=== PATIENT | male | born 1980 | race Caucasian/White ===

== ENCOUNTER 2017-11-26 07:25 | Emergency (ER) | payer MEDICAID, OTHER ==
[2017-11-26] MEDS ORDERED: Sodium Chloride 0.9% 500 ML IV ONE (07:45)
[2017-11-26] MEDS ORDERED: Sodium Chloride 0.9% 10 ML Syringe FLUSH PRN (07:45)
[2017-11-26] MEDS ORDERED: Ondansetron 4 MG/2 ML SDV IVPUSH ONE (07:58)
--- NOTE | 2017-11-26 07:58 | EDM.PDOC ---
ED HPI GENERAL MEDICAL PROBLEM - General Chief Complaint: Syncope Stated Complaint: [facility] Time Seen by Provider: 11/26/17 07:36 Source of Information: Reports: Patient, RN Notes Reviewed - History of Present Illness INITIAL COMMENTS - FREE TEXT/NARRATIVE: 37-year-old male has been brought in by ambulance after suffering syncopal event this morning a short time ago. He had been up For about a half an hour. He states he was sitting in a chair drinking coffee when he began to feel lightheaded dizzy nauseated. He did Not say anything to his . He thought it would pass. Than he proceeded to pass out at least for a brief period of time. On ambulance arrival he was awake.He was transported here without further incident. He has not been ill recently but has been taking fairly high dose alprazolam 1 mg 2-3 times dailyfor the past several weeks, probably longer. He has tapered down having taken a half milligram yesterday morning, nothing since that time. Apparently he is starting a new job Tuesday, 2 days from now and wants to be off of that medication. Is having no chest pain this morning. He feels slightly nauseated at this time. He has not vomited. No difficulty breathing. No palpitations. - Related Data Allergies Allergy/AdvReac Type Severity Reaction Status Date / Time No Known Allergies Allergy Verified 11/26/17 07:27 Home Meds: Home Meds ALPRAZolam [Xanax] 1 mg PO DAILY 11/26/17 [History] Past Medical History - Past Health History Medical/Surgical History: Denies Medical/Surgical History Social & Family History - Tobacco Use Smoking Status *Q: Never Smoker - Caffeine Use Caffeine Use: Reports: Coffee - Recreational Drug Use Recreational Drug Use: Yes Drug Use in Last 12 Months: Yes Recreational Drug Type: Reports: Xanax ED ROS GENERAL - Review of Systems Review Of Systems: See Below Constitutional: Reports: Diaphoresis (one). Denies: Fever, Chills HEENT: Denies: Throat Pain Respiratory: Denies: Shortness of Breath Cardiovascular: Reports: Lightheadedness, Syncope. Denies: Chest Pain, Palpitations (one) GI/Abdominal: Reports: Nausea. Denies: Abdominal Pain, Vomiting Musculoskeletal: Denies: Shoulder Pain, Arm Pain, Back Pain Skin: Denies: Rash Neurological: Denies: Headache, Numbness, Tingling, Trouble Speaking, Difficulty Walking - Physical Exam Exam: See Below General Appearance: Alert, No Apparent Distress Eye Exam: Bilateral Eye: PERRL Throat/Mouth: Normal Inspection, Normal Oropharynx Head Exam: Atraumatic Neck: Supple, Full Range of Motion Respiratory/Chest: No Respiratory Distress, Lungs Clear, Normal Breath Sounds Cardiovascular: Regular Rate, Rhythm GI/Abdominal: Soft, Non-Tender Neuro Exam (Abbreviated): Alert, Oriented, No Motor/Sensory Deficits, Other ( finger to nose testing normal) Extremities: Normal Inspection, Normal Range of Motion Skin Exam: Warm, Dry, Normal Color Course - Vital Signs Last Recorded V/S: Last Vital Signs Temp 97.3 F 11/26/17 07:28 Pulse 99 11/26/17 07:28 Resp 18 11/26/17 07:28 BP 132/74 11/26/17 07:28 Pulse Ox 100 11/26/17 07:28 Orthostatic Blood Pressure [ 130/74 Standing] Orthostatic Blood Pressure [ 135/85 Sitting] Orthostatic Blood Pressure [ 132/74 Supine] - Orders/Labs/Meds Orders: Active Orders 24 hr Category Date Time Status Orthostatic Vital Signs [RC] ASDIRECTED Care 11/26/17 07:40 Active Peripheral IV Care [RC] . DIRECTED Care 11/26/17 07:45 Active Sodium Chloride 0.9% [Saline Flush] Med 11/26/17 07:45 Active 10 ml FLUSH ASDIRECTED PRN Peripheral IV Insertion Adult [OM.PC] Stat Oth 11/26/17 07:45 Ordered Medication Orders Sodium Chloride (Saline Flush) 10 ml FLUSH ASDIRECTED PRN PRN Reason: Keep Vein Open Last Admin: 11/26/17 07:57 Dose: 10 ml Labs: Laboratory Tests 11/26/17 11/26/17 Range/Units 07:35 07:35 WBC 5.48 (4.23-9.07) K/mm3 RBC 5.36 (4.63-6.08) M/mm3 Hgb 17.1 (13.7-17.5) gm/L Hct 48.4 (40.1-51.0) % MCV 90.3 (79.0-92.2) fl MCH 31.9 (25.7-32.2) pg MCHC 35.3 (32.2-35.5) g/dl RDW Std Deviation 39.8 (35.1-43.9) fL Plt Count 195 (163-337) K/mm3 MPV 9.4 (9.4-12.3) fl Neut % (Auto) 36.4 (34.0-67.9) % Lymph % (Auto) 54.2 H (21.8-53.1) % [place] % (Auto) 7.1 (5.3-12.2) % Eos % (Auto) 1.5 (0.8-7.0) Baso % (Auto) 0.4 (0.1-1.2) % Neut # (Auto) 2.00 (1.78-5.38) K/mm3 Lymph # (Auto) 2.97 (1.32-3.57) K/mm3 [place] # (Auto) 0.39 (0.30-0.82) K/mm3 Eos # (Auto) 0.08 (0.04-0.54) K/mm3 Baso # (Auto) 0.02 (0.01-0.08) K/mm3 Sodium 137 (136-145) mEq/L Potassium 3.6 (3.5-5.1) mEq/L Chloride 101 (98-107) mEq/L Carbon Dioxide 27 (21-32) mEq/L Anion Gap 12.6 (5-15) BUN 16 (7-18) mg/dL Creatinine 1.2 (0.7-1.3) mg/dL Est Cr Clr Drug Dosing 85.92 mL/min Estimated GFR (MDRD) > 60 (>60) mL/min BUN/Creatinine Ratio 13.3 L (14-18) Glucose 120 H (74-106) mg/dL Calcium 9.0 (8.5-10.1) mg/dL Total Bilirubin 0.5 (0.2-1.0) mg/dL AST 22 (15-37) U/L ALT 43 (16-63) U/L Alkaline Phosphatase 89 (46-116) U/L Total Protein 7.6 (6.4-8.2) g/dl Albumin 4.2 (3.4-5.0) g/dl Globulin 3.4 gm/dL Albumin/Globulin Ratio 1.2 (1-2) Meds: Medications Generic Name Dose Route Start Last Admin Trade Name Xavier PRN Reason Stop Dose Admin Sodium Chloride 10 ml 11/26/17 07:45 11/26/17 07:57 Saline Flush FLUSH 10 ml ASDIRECTED PRN Administration Keep Vein Open Discontinued Medications Generic Name Dose Route Start Last Admin Trade Name Xavier PRN Reason Stop Dose Admin Sodium Chloride 500 mls @ 999 mls/hr 11/26/17 07:45 11/26/17 07:57 Normal Saline IV 11/26/17 08:15 999 mls/hr .BOLUS ONE Administration Ondansetron HCl 4 mg 11/26/17 07:58 11/26/17 08:07 Zofran IVPUSH 11/26/17 07:59 4 mg ONETIME ONE Administration - Re-Assessments/Exams Free Text/Narrative Re-Assessment/Exam: 11/26/17 07:58 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 11/26/17 08:54. labs are good, has continued in sinus rhythm no ectopy. Discharge instructions as documented Departure - Departure Time of Disposition: 08:54 Disposition: Home, Self-Care 01 Condition: Fair Clinical Impression: Syncope Qualifiers: Syncope type: vasovagal syncope Qualified Code(s): R55 - Syncope and collapse - Discharge Information Forms: ED Department Discharge Additional Instructions: rest, continue to drink plenty of water.Taper with the Xanax as discussed, 0.5 mg twice daily today, 0.5 mg tomorrow morning to 0.25 mg at evening only for the next several days. Follow-up clinic as needed. Return to ED as needed if symptoms worsening in any way. - My Orders Last 24 Hours: My Active Orders 11/26/17 07:40 Orthostatic Vital Signs [RC] ASDIRECTED 11/26/17 07:45 Peripheral IV Care [RC] . DIRECTED Sodium Chloride 0.9% [Saline Flush] 10 ml FLUSH ASDIRECTED PRN Peripheral IV Insertion Adult [OM.PC] Stat - Assessment/Plan Last 24 Hours: My Active Orders 11/26/17 07:40 Orthostatic Vital Signs [RC] ASDIRECTED 11/26/17 07:45 Peripheral IV Care [RC] . DIRECTED Sodium Chloride 0.9% [Saline Flush] 10 ml FLUSH ASDIRECTED PRN Peripheral IV Insertion Adult [OM.PC] Stat
== END 2017-11-26 09:03 | disposition home or self-care (01) ==
LOC: JD.ED 07:25
DX: R55 Syncope and collapse (principal)
CPT/HCPCS: 36415; 80053; 85025; 96361; 96374; 99284; J2405; J7040; J7050

== ENCOUNTER 2021-07-03 20:03 | Emergency (ER) | payer BC ==
[2021-07-03] MEDS ORDERED: Sodium Chloride 0.9% 10 ML Syringe FLUSH PRN (20:23)
--- NOTE | 2021-07-03 20:54 | EDM.PDOC ---
ED HPI GENERAL MEDICAL PROBLEM - General Chief Complaint: Cardiovascular Problem Stated Complaint: SYNCOPE/ HEAD INJURY Time Seen by Provider: 07/03/21 20:14 Source of Information: Reports: Patient, RN Notes Reviewed History Limitations: Reports: No Limitations - History of Present Illness INITIAL COMMENTS - FREE TEXT/NARRATIVE: Patient is a 40-year-old male presenting to the emergency department for evaluation of syncopal episodes x2 today. He reports that the first episode, he was sitting his truck and he developed pain in his chest and started hyperventilating. He then briefly lost consciousness. Prior to coming to ER, he was sitting in a chair leaning forward on his phone when he developed similar symptoms of hyperventilation and chest tightness. He then experienced syncopal episode. Patient reports he fell forward in the chair and landed on the top of his head on the concrete. Complains of headache slight blurred vision at this time. He reports that he is currently under quite a bit of stress. His left him and took his for children with. He has been feeling quite anxious, especially when he has these episodes. Denies any dizziness, chest pain, or shortness of breath at this time. Headache Pain Score (Numeric/FACES): 4 - Related Data Allergies Allergy/AdvReac Type Severity Reaction Status Date / Time No Known Allergies Allergy Verified 07/03/21 22:24 Home Meds: Home Meds ALPRAZolam [Xanax] 1 mg PO DAILY 11/26/17 [History] Gabapentin [Neurontin] 100 mg PO BID #14 cap 10/08/20 [Rx] Past Medical History - Past Health History Medical/Surgical History: Denies Medical/Surgical History Cardiovascular History: Reports: Other (See Below) Other Cardiovascular History: [facility] - Infectious Disease History Infectious Disease History: Reports: Novel Coronavirus Other Infectious Disease History: covid + in 06/2020 Social & Family History - Tobacco Use Tobacco Use Status *Q: Never Tobacco User - Caffeine Use Caffeine Use: Reports: Coffee - Recreational Drug Use Recreational Drug Use: Yes Drug Use in Last 12 Months: No Recreational Drug Type: Reports: Marijuana/Hashish Recreational Drug Use Frequency: Not Used In Over 6 Months Recreational Drug Last Use: 2016 ED ROS GENERAL - Review of Systems Review Of Systems: See Below Constitutional: Reports: No Symptoms. Denies: Fever, Chills HEENT: Reports: Vision Change (slightly blurred) Respiratory: Reports: No Symptoms Cardiovascular: Reports: Syncope Endocrine: Reports: No Symptoms GI/Abdominal: Reports: No Symptoms : Reports: No Symptoms Musculoskeletal: Reports: No Symptoms Skin: Reports: No Symptoms Neurological: Reports: Headache, Syncope Psychiatric: Reports: No Symptoms Hematologic/Lymphatic: Reports: No Symptoms Immunologic: Reports: No Symptoms ED EXAM, GENERAL - Physical Exam Exam: See Below General Appearance: Alert, WD/WN, No Apparent Distress Eye Exam: Bilateral Eye: PERRL Head: Other (Small hematoma to the top of the head. No bleeding or open areas.) Neck: Normal Inspection, Supple, Non-Tender, Full Range of Motion Respiratory/Chest: No Respiratory Distress, Lungs Clear, Normal Breath Sounds, No Accessory Muscle Use, Chest Non-Tender Cardiovascular: Normal Peripheral Pulses, Regular Rate, Rhythm, No Edema, No Gallop, No JVD, No Murmur, No Rub GI/Abdominal: Normal Bowel Sounds, Soft, Non-Tender, No Organomegaly, No Distention, No Abnormal Bruit, No Mass Neurological: Alert, Oriented, CN II-XII Intact, Normal Cognition, Normal Gait, No Motor/Sensory Deficits Psychiatric: Normal Affect, Normal Mood Skin Exam: Warm, Dry, Intact, Normal Color, No Rash #1 Interpretation EKG Date: 07/03/21 Time: 20:26 Rhythm: NSR Rate (Beats/Min): 97 [place]: Normal P-Wave: Present QRS: Normal ST-T: Normal QT: Normal Comparison: NA - No Prior EKG Course - Vital Signs Last Recorded V/S: Last Vital Signs Temp 98.5 F 07/03/21 20:15 Pulse 101 H 07/03/21 20:15 Resp 18 07/03/21 20:15 BP 123/76 07/03/21 20:15 Pulse Ox 98 07/03/21 20:15 - Orders/Labs/Meds Orders: Active Orders 24 hr Category Date Time Status Chest 2V [CR] Stat Exams 07/03/21 20:42 Taken Head wo Cont [CT] Stat Exams 07/03/21 20:42 Taken Peripheral IV Insertion Adult [OM.PC] Stat Oth 07/03/21 20:23 Ordered Labs: Laboratory Tests 07/03/21 07/03/21 07/03/21 Range/Units 20:30 20:30 20:30 WBC 8.45 (4.23-9.07) K/mm3 RBC 4.81 (4.63-6.08) M/mm3 Hgb 15.4 (13.7-17.5) gm/dl Hct 44.1 (40.1-51.0) % MCV 91.7 (79.0-92.2) fl MCH 32.0 (25.7-32.2) pg MCHC 34.9 (32.2-35.5) g/dl RDW Std Deviation 38.4 (35.1-43.9) fL Plt Count 232 (163-337) K/mm3 MPV 9.5 (9.4-12.3) fl Neut % (Auto) 83.2 H (34.0-67.9) % Lymph % (Auto) 10.1 L (21.8-53.1) % [place] % (Auto) 6.4 (5.3-12.2) % Eos % (Auto) 0.1 L (0.8-7.0) Baso % (Auto) 0.1 (0.1-1.2) % Neut # (Auto) 7.03 H (1.78-5.38) K/mm3 Lymph # (Auto) 0.85 L (1.32-3.57) K/mm3 [place] # (Auto) 0.54 (0.30-0.82) K/mm3 Eos # (Auto) 0.01 L (0.04-0.54) K/mm3 Baso # (Auto) 0.01 (0.01-0.08) K/mm3 D-Dimer, Quantitative 0.28 (0.19-0.50) mg/L Sodium 139 (136-145) mEq/L Potassium 3.6 (3.5-5.1) mEq/L Chloride 103 (98-107) mEq/L Carbon Dioxide 25 (21-32) mEq/L Anion Gap 14.6 (5-15) BUN 12 (7-18) mg/dL Creatinine 0.9 (0.7-1.3) mg/dL Est Cr Clr Drug Dosing 111.29 mL/min Estimated GFR (MDRD) > 60 (>60) mL/min BUN/Creatinine Ratio 13.3 L (14-18) Glucose 105 H (70-99) mg/dL Calcium 8.5 (8.5-10.1) mg/dL Total Bilirubin 0.6 (0.2-1.0) mg/dL AST 47 H (15-37) U/L ALT 52 (16-63) U/L Alkaline Phosphatase 87 (46-116) U/L Troponin I < 0.017 (0.00-0.056) ng/mL Total Protein 7.3 (6.4-8.2) g/dl Albumin 4.2 (3.4-5.0) g/dl Globulin 3.1 gm/dL Albumin/Globulin Ratio 1.4 (1-2) Meds: Medications Discontinued Medications Generic Name Dose Route Start Last Admin Trade Name Freq PRN Reason Stop Dose Admin Sodium Chloride 10 ml 07/03/21 20:23 07/03/21 20:33 Sodium Chloride 0.9% 10 Ml Syringe FLUSH 10 ml ASDIRECTED PRN Administration Keep Vein Open - Re-Assessments/Exams Free Text/Narrative Re-Assessment/Exam: Patient is a 40-year-old male presenting to the emergency department for evaluation after experiencing 2 syncopal episodes today. From his description of events, he is likely experiencing panic attacks with syncope related to hyperventilation. He did experience head injury after the second episode. He is under significant amount of stress and states that he has been feeling quite anxious. On exam, he has a small hematoma to the top of his head which is tender to palpation. There is no open areas. Neurologic exam is unremarkable. He does complain of headache and blurry vision. I have ordered blood work, EKG, chest x-ray, head CT. 07/03/21 22:18 Hematology is unremarkable. EKG shows normal sinus rhythm at 97 with no acute abnormalities. Head CT shows no acute intracranial process. Chest x-ray is normal. Results discussed with patient. Discussed option of Holter monitor, however he declined. He feels this is likely anxiety related as well. I will write prescription for as needed Ativan. Recommend follow-up with his primary care provider next week for follow-up. Recommend limiting caffeine from his diet. Patient does not consume alcohol. Discussed return precautions. Discharge instructions as document. Departure - Departure Time of Disposition: 22:18 Disposition: Home, Self-Care 01 Condition: Good Clinical Impression: Anxiety Syncope Qualifiers: Syncope type: vasovagal syncope Qualified Code(s): R55 - Syncope and collapse Instructions: Managing Anxiety, Adult, Syncope Referrals: Filmeon Kimball PA-C [Primary Care Provider] - Forms: ED Department Discharge Additional Instructions: Avoid caffeine intake. Use Ativan as prescribed for anxiety. Do not work or drive for 12 hours after taking this medication as it can be sedating. Follow-up with your primary care provider next week. Return to ER for any new or worsening symptoms. Sepsis Event Note (ED) - Evaluation Sepsis Screening Result: No Definite Risk - Focused Exam Vital Signs: Vital Signs Temp Pulse Resp BP Pulse Ox 07/03/21 20:15 98.5 F 101 H 18 123/76 98 - My Orders Last 24 Hours: My Active Orders 07/03/21 20:23 Peripheral IV Insertion Adult [OM.PC] Stat 07/03/21 20:42 Chest 2V [CR] Stat Head wo Cont [CT] Stat - Assessment/Plan Last 24 Hours: My Active Orders 07/03/21 20:23 Peripheral IV Insertion Adult [OM.PC] Stat 07/03/21 20:42 Chest 2V [CR] Stat Head wo Cont [CT] Stat
--- NOTE | 2021-07-04 07:07 | CT ---
Head CT Technique: Multiple axial sections through the brain were obtained. Intravenous contrast was not utilized. Reconstructed coronal and sagittal images were obtained. Comparison: No prior intracranial imaging is available. Findings: Ventricles along with basal cisterns and sulci over the convexities are within normal limits for the patient's age. No abnormal parenchymal densities are seen. No evidence of intracranial hemorrhage is seen. No midline shift or mass-effect is seen. Bone window settings were reviewed. Soft tissue is noted within the left mastoid sinus. Other portions of the mastoid sinuses and visualized paranasal sinuses show nothing acute. No acute calvarial finding is seen. Impression: 1. Mild mucosal thickening within the left mastoid sinus. This is likely incidental unless patient has symptoms to this area. 2. No acute intracranial abnormality is appreciated. Diagnostic code #2 I agree with preliminary report from [facility], finalized on 07/03/21, 11:02 PM [employer], code 1
--- NOTE | 2021-07-04 07:07 | CR ---
Chest: PA and lateral views of the chest were obtained. Comparison: No prior chest imaging. Heart size and mediastinum are within normal limits. Lungs are clear with no acute parenchymal change being seen. Minimal scoliosis is noted. No acute osseous abnormality is appreciated. Impression: 1. Nothing acute is seen on 2-view chest x-ray. Diagnostic code #1
== END 2021-07-03 22:29 | disposition home or self-care (01) ==
LOC: JD.ED 20:03
DX: R55 Syncope and collapse (principal); S00.83XA Contusion of other part of head, initial encounter; F41.9 Anxiety disorder, unspecified; Z86.16 Personal history of COVID-19; W07.XXXA Fall from chair, initial encounter
CPT/HCPCS: 36415; 70450; 70450-26; 71046; 71046-26; 80053; 84484; 85025; 85379; 93005; 93010; 99284-25; 99285

== ENCOUNTER 2021-12-13 22:44 | Emergency (ER) | payer BC, OTHER | END 2021-12-14 02:15 | disposition home or self-care (01) | LOC: JD.ED 22:44 | DX: R55 Syncope and collapse (principal); Z86.16 Personal history of COVID-19; Z79.899 Other long term (current) drug therapy | CPT/HCPCS: 36415; 80053; 82947; 83735; 84484; 85025; 85379; 93005; 93010; 99283; 99284-25 ==

== ENCOUNTER 2022-07-04 19:10 | Emergency (ER) | payer BC, MEDICAID | END 2022-07-04 21:01 | disposition left against medical advice (07) | LOC: JD.ED 19:10 | DX: N50.89 Other specified disorders of the male genital organs (principal); I25.2 Old myocardial infarction; Z79.899 Other long term (current) drug therapy; Z86.16 Personal history of COVID-19 | CPT/HCPCS: 76870; 76870-26; 81001; 93975; 99284 ==